=== PATIENT | male | born 1985 | race Caucasian/White ===

== ENCOUNTER 2019-03-10 19:30 | Emergency (ER) | payer SELFPAY ==
[~2019-03-10] VITALS: Ht 170.2 cm; Wt 63.5 kg
--- NOTE | 2019-03-10 20:42 | NUR ---
Patient discharged to home in stable conditon. Written and verbal after care instructions given. Patient verbalizes understanding of instructions.
[2019-03-10 20:46] VITALS: BP 112/77
== END 2019-03-10 20:47 | disposition home or self-care (01) ==
LOC: ER 19:30
DX: S61.401D Unspecified open wound of right hand, subsequent encounter (principal); F17.200 Nicotine dependence, unspecified, uncomplicated; F11.10 Opioid abuse, uncomplicated; X58.XXXD Exposure to other specified factors, subsequent encounter
CPT/HCPCS: 73130; A4663